=== PATIENT | female | born 1955 | race Caucasian/White ===

== ENCOUNTER 2017-11-24 10:23 | Emergency (ER) | payer OTHER ==
[~2017-11-24] VITALS: Ht 154.9 cm; Wt 63.5 kg
[2017-11-24] MEDS ORDERED: METFORMIN HCL500 MG PO (10:33)
[2017-11-24] MEDS ORDERED: NEURONTIN300 MG PO (10:34)
== END 2017-11-24 21:34 | disposition home or self-care (01) ==
LOC: ER 10:23
DX: K59.09 Other constipation (principal); K57.30 Diverticulosis of large intestine without perforation or abscess without bleeding

== ENCOUNTER 2018-03-30 15:29 | Emergency (ER) | payer OTHER ==
[~2018-03-30] VITALS: Ht 154.9 cm; Wt 58.1 kg
[~2018-03-30 15:29] MED LIST: METFORMIN HCL500 MG PO; NEURONTIN300 MG PO
== END 2018-03-30 19:42 | disposition home or self-care (01) ==
LOC: ER 15:29
DX: S00.83XA Contusion of other part of head, initial encounter (principal); S70.01XA Contusion of right hip, initial encounter; S80.01XA Contusion of right knee, initial encounter; W18.39XA Other fall on same level, initial encounter; Y93.89 Activity, other specified; Y92.481 Parking lot as the place of occurrence of the external cause; Y99.8 Other external cause status